=== PATIENT | male | born 1990 | race Caucasian/White ===

== ENCOUNTER 2023-10-01 13:14 | Day surgery (SDC) | payer OTHER ==
[~2023-10-01] VITALS: Ht 180.3 cm; Wt 65.2 kg
[~2023-10-01 13:14] MED LIST: Atropine Sulfate 0.1 MG/ML 10ML SYR ONE; Glycopyrrolate 0.2 MG/ML 1MLVIAL ONE; Lactated Ringer's 1,000 ML IV ONE; Lidocaine 2% 5 ML SDV ONE; Lidocaine HCl/Pf 1% 5 ML VIAL ONE; Methylene Blue 1% 100 MG/10 ML VIAL ONE; Ondansetron HCl 2 MG / ML 2ML Vial ONE; ePHEDrine Sulfate 50 MG/ML 1ML Injection ONE
[2023-10-01] MEDS ORDERED: ALBU90OI (14:05)
[2023-10-01] MEDS ORDERED: BUSPIRONE HCL30 M1 (14:05)
[2023-10-01] MEDS ORDERED: CYCL10 (14:06)
[2023-10-01] MEDS ORDERED: GABA400 (14:06)
[2023-10-01] MEDS ORDERED: EPIPEN0.3 MG/0.3 (14:06)
[2023-10-01] MEDS ORDERED: FLUTICASONE-SA1 EAC1 (14:06)
[2023-10-01] MEDS ORDERED: FAMO10 (14:06)
[2023-10-01] MEDS ORDERED: HALO2 (14:07)
[2023-10-01] MEDS ORDERED: MIRT30 (14:07)
[2023-10-01] MEDS ORDERED: OMEP20ER (14:07)
[2023-10-01] MEDS ORDERED: PRAZ1 (14:07)
[2023-10-01] MEDS ORDERED: ONDA4 (14:07)
[2023-10-01] MEDS ORDERED: Lidocaine HCl/Pf 1% 5 ML VIAL ONE (14:13)
[2023-10-01] MEDS ORDERED: propofoL 50 ML IV ONE (14:23)
[2023-10-01] MEDS ORDERED: Midazolam HCl 1MG / ML 2ML Vial ONE (14:25)
[2023-10-01] MEDS ORDERED: Lactated Ringer's 1,000 ML IV ONE (14:42)
--- NOTE | 2023-10-01 15:42 | NUR ---
10/01/23 1542 Avani Ruelas WHEN PT TURNED ONTO LEFT SIDE, RN NOTICE A RED AREA ON HIS LEFT SHOULDER BLADE WHICH APPEARS TO BE EITHER A KEVAN OR PSORIASIS.
== END 2023-10-01 16:40 | disposition home or self-care (01) ==
LOC: ORSCSDS 13:14
PROVIDERS: Internal Medicine Gastroenterology
PROC: 0DJ08ZZ Inspection of Upper Intestinal Tract, Via Natural or Artificial Opening Endoscopic (ICD-10-PCS; principal; 2023-10-01 14:30)
PROC: 0DJD8ZZ Inspection of Lower Intestinal Tract, Via Natural or Artificial Opening Endoscopic (ICD-10-PCS; principal; 2023-10-01 14:30)
DX: K62.5 Hemorrhage of anus and rectum (principal); K92.0 Hematemesis; K44.9 Diaphragmatic hernia without obstruction or gangrene; F17.210 Nicotine dependence, cigarettes, uncomplicated; J44.9 Chronic obstructive pulmonary disease, unspecified; K21.9 Gastro-esophageal reflux disease without esophagitis; F31.9 Bipolar disorder, unspecified; Z79.899 Other long term (current) drug therapy
CPT/HCPCS: J0461; J2001; J2250; J2405; J2704; J7120; Q9968

== ENCOUNTER 2024-04-30 09:06 | Day surgery (SDC) | payer OTHER ==
[~2024-04-30] VITALS: Ht 177.8 cm; Wt 70.4 kg
[~2024-04-30 09:06] MED LIST changes: +ALBU90OI; -Atropine Sulfate 0.1 MG/ML 10ML SYR ONE; +BUSPIRONE HCL30 M1; +CYCL10; +EPIPEN0.3 MG/0.3; +FAMO10; +FLUTICASONE-SA1 EAC1; +GABA400; -Glycopyrrolate 0.2 MG/ML 1MLVIAL ONE; +HALO2; -Lidocaine 2% 5 ML SDV ONE; -Lidocaine HCl/Pf 1% 5 ML VIAL ONE; +MIRT30; -Methylene Blue 1% 100 MG/10 ML VIAL ONE; +OMEP20ER; +ONDA4; -Ondansetron HCl 2 MG / ML 2ML Vial ONE; +PRAZ1; -ePHEDrine Sulfate 50 MG/ML 1ML Injection ONE
[2024-04-30] MEDS ORDERED: Lactated Ringer's 1,000 ML IV ONE (10:16)
[2024-04-30] MEDS ORDERED: propofoL 50 ML IV ONE (10:30)
== END 2024-04-30 12:03 | disposition home or self-care (01) ==
LOC: ORSCSDS 09:06
PROVIDERS: Specialist
PROC: 0DJD8ZZ Inspection of Lower Intestinal Tract, Via Natural or Artificial Opening Endoscopic (ICD-10-PCS; principal; 2024-04-30 10:45)
DX: K62.5 Hemorrhage of anus and rectum (principal); K59.00 Constipation, unspecified; K64.8 Other hemorrhoids; J45.909 Unspecified asthma, uncomplicated; Z79.899 Other long term (current) drug therapy; K31.84 Gastroparesis
CPT/HCPCS: 82947; J2704; J7120